=== PATIENT | female | born 1990 | race Hispanic/Latino ===

== ENCOUNTER 2018-06-08 11:04 | Emergency (ER) | payer OTHER, SELFPAY ==
[2018-06-08] MEDS ORDERED: ONDANSETRON 4 MG/2 ML VIAL ONE (12:41)
[2018-06-08] MEDS ORDERED: NA CHLORIDE 0.9% 1,000 ML ONE (12:41)
[2018-06-08] MEDS ORDERED: MORPHINE 4 MG/ML SYR ONE ×2 (12:41→19:59)
[2018-06-08] MEDS ORDERED: FAMOTIDINE 20 MG/2 ML VIAL IV ONE (12:41)
[2018-06-08 12:43] LABS: Absolute Monocytes 0.5 K/uL (0.1-1.3); Absolute Neutrophil 7.2 K/uL (1.8-8.0); Basophils % 0.3 % (0-1.3); Eosinophils % 1.4 % (0-4.4); Hematocrit 36.7 % (36.0-45.0); Lymphocytes % 11.7 % (15.3-44.8); MCH 29.2 pg (27.0-35.0); MCV 85.6 fL (80-100); MPV 9.5 fL (7.6-11.3); Monocytes % 5.3 % (3.3-12.3); RBC Red Blood Cell Count 4.29 M/uL (3.86-4.86)
--- NOTE | 2018-06-08 12:58 | EKG ---
Test Date: 2018-06-08 Test Time: 11:52:46 Bilingual Legal Assistant: ELIAZAR MEASUREMENT RESULTS: Intervals: Rate: 61 FL: 140 QRSD: 78 QT: 398 QTc: 400 Sebastian: P: -7 FL: 140 QRS: 7 T: 26 INTERPRETIVE STATEMENTS: Normal sinus rhythm Possible Anterior infarct, age undetermined Abnormal ECG No previous ECG available for comparison Electronically Signed On 06-08-18 12:57:40 CDT by Yuri Valiente
--- NOTE | 2018-06-08 13:00 | RAD REPORT ---
EXAM DESCRIPTION: US - Abdomen Exam Limited - 06/08/2018 12:51 pm CLINICAL HISTORY: ABD PAIN COMPARISON: No comparisons FINDINGS: The gallbladder demonstrates multiple shadowing gallstones. Edema is present in the wall m easuring 5 mm. The common bile duct is normal measuring 4 mm. The liver demonstrates no findings of intrahepatic biliary dilatation. IMPRESSION: Cholelithiasis with thickening gallbladder wall to 5 mm most compatible with acute hector cystitis.
--- NOTE | 2018-06-08 13:08 | RAD REPORT ---
EXAM DESCRIPTION: RAD - Chest Single View - 06/08/2018 1:03 pm CLINICAL HISTORY: CHEST PAIN Chest pain. COMPARISON: No comparisons FINDINGS: Portable technique limits examination quality. The lungs are grossly clear. The heart is normal in size. No displaced fractures. IMPRESSION: No acute intrathoracic process suspected.
[2018-06-08 13:17] LABS: ALT/SGPT 50 U/L (12-78); AST/SGOT 21 U/L (15-37); Albumin 3.7 g/dL (3.4-5.0); Alkaline Phosphatase 92 U/L (45-117); BUN Blood Urea Nitrogen 8 mg/dL (7-18); Bicarbonate 25 mmol/L (21-32); Bilirubin Direct 0.1 mg/dL (0-0.2); Bilirubin Total 0.5 mg/dL (0.2-1.0); Glucose Level 99 mg/dL (74-106); Lipase 101 U/L (73-393); Magnesium 1.9 mg/dL (1.8-2.4); Potassium 3.6 mmol/L (3.5-5.1); Protein, Total 7.8 g/dL (6.4-8.2); Sodium Level 140 mmol/L (136-145); Troponin (Emerg Dept Use Only) 0.12 ng/mL (0.0-0.045)
--- NOTE | 2018-06-08 13:36 | EDPHYS ---
Physician Documentation [facility] Name: Linda Sy Age: 27 yrs Sex: Female : 1990 Arrival Date: 06/08/2018 Time: 11:07 Bed 27 Private MD: ED Physician Lio Mead HPI: 06/08 12:28 This 27 yrs old Female presents to ER via Ambulatory with complaints of Chest lucia Pain, Low Back Pain. 12:28 The patient or guardian reports chest pain that is located primarily in the substernal lucia area, epigastric area. The pain radiates to right back. Associated signs and symptoms: The patient has no apparent associated signs or symptoms. The chest pain is described as aching, burning. Modifying factors: The symptoms are alleviated by nothing. the symptoms are aggravated by nothing. Severity of pain: At its worst the pain was moderate in the emergency department the pain has resolved. The patient has not experienced similar symptoms in the past. 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 - Social history:: Smoking status: Patient/guardian denies using tobacco. - Ebola Screening: : Patient denies travel to an Ebola-affected area in the 21 days before illness onset. - Family history:: not pertinent. ROS: 12:28 Constitutional: Negative for fever, chills, and weight loss, Eyes: Negative for injury, lucia pain, redness, and discharge, ENT: Negative for injury, pain, and discharge, Neck: Negative for injury, pain, and swelling, Cardiovascular: Negative for chest pain, palpitations, and edema, Respiratory: Negative for shortness of breath, cough, wheezing, and pleuritic chest pain, Back: Negative for injury and pain, : Negative for injury, bleeding, discharge, and swelling, MS/Extremity: Negative for injury and deformity, Skin: Negative for injury, rash, and discoloration, Neuro: Negative for headache, weakness, numbness, tingling, and seizure, Psych: Negative for depression, anxiety, suicide ideation, homicidal ideation, and hallucinations, Allergy/Immunology: Negative for hives, rash, and allergies, Endocrine: Negative for neck swelling, polydipsia, polyuria, polyphagia, and marked weight changes, Hematologic/Lymphatic: Negative for swollen nodes, abnormal bleeding, and unusual bruising. 12:28 Abdomen/GI: Positive for abdominal pain, abdominal cramps, of the epigastric area and right upper quadrant. Exam: 12:28 Constitutional: This is a well developed, well nourished patient who is awake, alert, lucia and in no acute distress. Head/Face: Normocephalic, atraumatic. Eyes: Pupils equal round and reactive to light, extra-ocular motions intact. Lids and lashes normal. Conjunctiva and sclera are non-icteric and not injected. Cornea within normal limits. Periorbital areas with no swelling, redness, or edema. ENT: Nares patent. No nasal discharge, no septal abnormalities noted. Tympanic membranes are normal and external auditory canals are clear. Oropharynx with no redness, swelling, or masses, exudates, or evidence of obstruction, uvula midline. Mucous membranes moist. Neck: Trachea midline, no thyromegaly or masses palpated, and no cervical lymphadenopathy. Supple, full range of motion without nuchal rigidity, or vertebral point tenderness. No Meningismus. Chest/axilla: Normal chest wall appearance and motion. Nontender with no deformity. No lesions are appreciated. Cardiovascular: Regular rate and rhythm with a normal S1 and S2. No gallops, murmurs, or rubs. Normal PMI, no JVD. No pulse deficits. Respiratory: Lungs have equal breath sounds bilaterally, clear to auscultation and percussion. No rales, rhonchi or wheezes noted. No increased work of breathing, no retractions or nasal flaring. Back: No spinal tenderness. No costovertebral tenderness. Full range of motion. Pelvic Exam: Normal external genitalia. Speculum exam with closed cervical os, no discharge or bleeding noted. Bimanual exam with normal adnexa, no adnexal or cervical motion tenderness. Normal uterus. Female : Normal external genitalia. Skin: Warm, dry with normal turgor. Normal color with no rashes, no lesions, and no evidence of cellulitis. MS/ Extremity: Pulses equal, no cyanosis. Neurovascular intact. Full, normal range of motion. Neuro: Awake and alert, GCS 15, oriented to person, place, time, and situation. Cranial nerves II-XII grossly intact. Motor strength 5/5 in all extremities. Sensory grossly intact. Cerebellar exam normal. Normal gait. Psych: Awake, alert, with orientation to person, place and time. Behavior, mood, and affect are within normal limits. 12:28 Abdomen/GI: Inspection: abdomen appears normal, Bowel sounds: normal, Palpation: mild abdominal tenderness, in the epigastric area and right upper quadrant, Liver: is firm, Hernia: not appreciated. 12:29 Musculoskeletal/extremity: DVT Exam: No signs of deep vein thrombosis. no pain, no lucia swelling, no tenderness, negative Homans' sign noted on exam, no appreciated bluish discoloration, no erythema, no increased warmth. Vital Signs: 11:43 BP 128 / 97; Pulse 83; Resp 16; Temp 97.2(TE); Pulse Ox 100% on R/A; Weight 74.84 kg [facility] (R); Height 5 ft. 1 in. (154.94 cm) (R); Pain 10/10; 12:57 BP 118 / 78; Pulse 74; Resp 18; Pulse Ox 100% on R/A; kr2 14:37 BP 122 / 76; Pulse 63; Resp 19; Pulse Ox 100% ; kr2 16:02 BP 107 / 82; Pulse 59; Resp 19; Pulse Ox 100% on R/A; kr2 18:00 BP 110 / 70; Pulse 62; Resp 17; Pulse Ox 100% on R/A; kr2 18:47 BP 112 / 59; Pulse 73; Resp 19; Pulse Ox 100% ; kr2 19:30 BP 103 / 63; Pulse 75; Resp 17; Pulse Ox 100% ; kr2 20:30 BP 108 / 72; Pulse 74; Resp 16; Pulse Ox 99% on R/A; kr2 11:43 Body Mass Index 31.18 (74.84 kg, 154.94 cm) [facility] MDM: 12:05 Patient medically screened. [facility] 12:29 Data reviewed: vital signs, nurses notes, lab test result(s), EKG, radiologic studies, [facility] plain films, ultrasound. 06/08 12:27 Order name: Basic Metabolic Panel; Complete Time: 13:32 [facility] 06/08 12:27 Order name: CBC with Diff; Complete Time: 13:32 lucia 06/08 12:27 Order name: LFT's; Complete Time: 13:32 lucia 06/08 12:27 Order name: Magnesium; Complete Time: 13:32 [facility] 06/08 12:27 Order name: Troponin (emerg Dept Use Only); Complete Time: 13:32 lucia 06/08 12:27 Order name: Lipase; Complete Time: 13:32 lucia 06/08 12:27 Order name: XRAY Chest (1 view); Complete Time: 13:32 [facility] 06/08 12:27 Order name: US Abdomen Limited; Complete Time: 13:32 lucia 06/08 12:55 Order name: Urine Dipstick--Ancillary (enter results); Complete Time: 14:42 bd 06/08 12:55 Order name: Urine --Ancillary (enter results); Complete Time: 14:42 06/08 13:41 Order name: Echo w/ Doppler [facility] 06/08 13:41 Order name: CT Chest For PE Angio [facility] 06/08 16:41 Order name: Ptt, Activated [facility] 06/08 16:41 Order name: Troponin I [facility] 06/08 12:27 Order name: EKG; Complete Time: 12:28 [facility] 06/08 12:27 Order name: Cardiac monitoring; Complete Time: 12:41 [facility] 06/08 14:08 Order name: CONS Physician Consult EDMT 06/08 14:08 Order name: CONS Physician Consult [facility] 06/08 14:32 Order name: CT; Complete Time: 14:42 EDMT 06/08 12:27 Order name: EKG - Nurse/Tech; Complete Time: 12:41 [facility] 06/08 12:27 Order name: IV Saline Lock; Complete Time: 12:41 [facility] 06/08 12:27 Order name: Labs collected and sent; Complete Time: 12:41 [facility] 06/08 12:27 Order name: O2 Per Protocol; Complete Time: 12:41 [facility] 06/08 12:27 Order name: O2 Sat Monitoring; Complete Time: 12:41 [facility] 06/08 12:27 Order name: Urine Dipstick-Ancillary (obtain specimen); Complete Time: 12:39 lucia 06/08 12:27 Order name: Urine Test (obtain specimen); Complete Time: 12:39 [facility] Administered Medications: 12:40 Drug: Zofran 4 mg Route: IVP; Site: right forearm; kr2 12:58 Follow up: Response: No adverse reaction; Nausea is decreased kr2 12:40 Drug: morphine 2 mg Route: IVP; Site: right forearm; kr2 12:58 Follow up: Response: No adverse reaction; Pain is decreased kr2 12:40 Drug: Pepcid 20 mg Route: IVP; Site: right forearm; kr2 12:57 Follow up: Response: No adverse reaction; Pain is decreased; Nausea is decreased kr2 12:50 Drug: NS 0.9% 1000 ml Route: IV; Rate: 1 bolus; Site: right forearm; kr2 14:00 Follow up: Response: No adverse reaction; IV Status: Completed infusion kr2 14:24 Drug: Heparin (ND-Bolus No thrombolytic) - HEParin 60 units/kg {Co-Signature: kr2 ss (Helen Murphy RN).} Route: IVP; Site: right forearm; 15:10 Follow up: Response: No adverse reaction kr2 14:25 Drug: Heparin (ND Drip) 12 units/kg/hr - (HEParin 57892 units, D5W 500 ml) ss {Co-Signature: kr2 (Helen Murphy RN).} Route: IV; Rate: calculated rate; Site: right forearm; 14:34 Drug: Lopressor 25 mg Route: PO; kr2 15:11 Follow up: Response: No adverse reaction kr2 14:35 Drug: Aspirin Chewable Tablet 324 mg Route: PO; kr2 15:10 Follow up: Response: No adverse reaction kr2 15:08 Drug: Zosyn 3.375 grams Route: IVPB; Infused Over: 60 mins; Site: left antecubital; kr2 16:15 Follow up: Response: No adverse reaction; IV Status: Completed infusion kr2 15:09 Drug: morphine 2 mg Route: IVP; Site: left antecubital; kr2 19:56 Drug: morphine 2 mg Route: IVP; Site: left antecubital; kr2 20:21 Follow up: Response: No adverse reaction; Pain is decreased rv Disposition: 06/08/18 16:40 Transfer ordered to [facility]. Diagnosis are Chest pain, unspecified, Cholecystitis - cystic duct stone, Cholelithiasis, Urinary tract infection, site not specified. - Reason for transfer: Higher level of care. - Accepting physician is to [facility], tele, cholecystitis, chest pain, elevated . - Condition is Fair. - Problem is new. - Symptoms have improved. Signatures: Dispatcher [employer] EDMS Dipika Segundo Madison Maddox RN RN aj1 Lio Mead MD MD cha Smirch, Shelby, RN RN ss Helen Murphy RN RN kr2 Javy Zhang RN rv Helen Murphy RN kr2 Corrections: (The following items were deleted from the chart) 13:38 13:35 06/08/2018 13:35 Transfer ordered to [facility]. Diagnosis is lucia Other chest pain; Cholecystitis; Cholelithiasis. Reason for transfer: Higher level of care. Accepting physician is to [facility]. Condition is Stable. Problem is new. Symptoms have improved. lucia 14:01 13:38 06/08/2018 13:35 Transfer ordered to [facility]. Diagnosis is lucia Other chest pain - trop 0.12; Cholecystitis; Cholelithiasis. Reason for transfer: Higher level of care. Accepting physician is to [facility]. Condition is Stable. Problem is new. Symptoms have improved. lucia 15:55 14:02 Hospitalization Ordered by Haylee Hopkins MD for Inpatient Admission. Preliminary bd diagnosis is Other chest pain; Cholecystitis; Cholelithiasis. Bed requested for Telemetry/MedSurg (Inpatient). Status is Inpatient Admission. Condition is Fair. Problem is new. Symptoms have improved. UTI on Admission? No. lucia 16:37 15:55 06/08/2018 14:02 Hospitalization Ordered by Haylee Hopkins MD for Inpatient lucia Admission. Preliminary diagnosis is Other chest pain; Cholecystitis; Cholelithiasis. Bed requested for Telemetry/MedSurg (Inpatient). Status is Inpatient Admission. Condition is Fair. Problem is new. Symptoms have improved. UTI on Admission? No. bd 17:12 16:40 06/08/2018 16:40 Transfer ordered to [facility]. Diagnosis is lucia Chest pain, unspecified; Cholecystitis - cystic duct stone; Cholelithiasis. Reason for transfer: Higher level of care. Accepting physician is to [facility], tele, cholecystitis, chest pain, elevated . Condition is Fair. Problem is new. Symptoms have improved. lucia 20:33 17:12 06/08/2018 16:40 Transfer ordered to [facility]. Diagnosis is kr2 Chest pain, unspecified; Cholecystitis - cystic duct stone; Cholelithiasis; Urinary tract infection, site not specified. Reason for transfer: Higher level of care. Accepting physician is to [facility], tele, cholecystitis, chest pain, elevated . Condition is Fair. Problem is new. Symptoms have improved. lucia
--- NOTE | 2018-06-08 13:36 | ER ---
Nurse's Notes [facility] Name: Linda Sy Age: 27 yrs Sex: Female : 1990 Arrival Date: 06/08/2018 Time: 11:07 Bed 27 Private MD: Diagnosis: Chest pain, unspecified;Cholecystitis-cystic duct stone;Cholelithiasis;Urinary tract infection, site not specified Presentation: 06/08 11:40 Presenting complaint: Patient states: Reports right lower back pain, epigastric pain aj1 and chest pain since last night. Reports SOB, vomiting. Denies palpitations. Denies urinary symptomes. Transition of care: patient was not received from another setting of care. Onset of symptoms was June 07, 2018. Risk Assessment: Do you want to hurt yourself or someone else? Patient reports no desire to harm self or others. Initial Sepsis Screen: Does the patient meet any 2 criteria? No. Patient's initial sepsis screen is negative. Does the patient have a suspected source of infection? Yes: Acute abdominal pain. Care prior to arrival: None. 11:40 Method Of Arrival: Ambulatory aj1 11:40 Acuity: JOSUE 3 aj1 Triage Assessment: 11:43 General: Appears in no apparent distress. uncomfortable, Behavior is calm, cooperative, aj1 appropriate for age. Pain: Complains of pain in right low back, chest and epigastric area Pain currently is 10 out of 10 on a pain scale. Neuro: Level of Consciousness is awake, alert, obeys commands. Cardiovascular: Patient's skin is warm and dry. Cardiovascular: Reports chest pain. Respiratory: Airway is patent Respiratory effort is even, unlabored, Respiratory pattern is regular, symmetrical. GI: Reports upper abdominal pain, vomiting. : Denies burning with urination, urinary frequency. Derm: Skin is pink, warm \T\ dry. normal. 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 - Social history:: Smoking status: Patient/guardian denies using tobacco. - Ebola Screening: : Patient denies travel to an Ebola-affected area in the 21 days before illness onset. - Family history:: not pertinent. Screenin:12 Abuse screen: Denies threats or abuse. Denies injuries from another. Nutritional kr2 screening: No deficits noted. Tuberculosis screening: No symptoms or risk factors identified. Fall Risk None identified. Assessment: 12:09 General: Appears in no apparent distress. comfortable, well groomed, well developed, kr2 well nourished, Behavior is calm, cooperative, appropriate for age. Pain: Complains of pain in epigastric area Pain radiates to back Pain currently is 10 out of 10 on a pain scale. Quality of pain is described as sharp, shooting, Pain began last night Is continuous, Alleviated by nothing. Aggravated by increased activity. Neuro: Level of Consciousness is awake, alert, obeys commands, Oriented to person, place, time, situation, Appropriate for age. Cardiovascular: Capillary refill < 3 seconds in bilateral fingers Patient's skin is warm and dry. Rhythm is sinus rhythm. Respiratory: Airway is patent Respiratory effort is even, unlabored, Respiratory pattern is regular, symmetrical. GI: Abdomen is flat, non-distended, Bowel sounds present X 4 quads. Reports nausea, vomiting. EENT: Oral mucosa is moist. Derm: Skin is intact, is healthy with good turgor, Skin is pink, warm \T\ dry. Musculoskeletal: Circulation, motion, and sensation intact. 12:41 Reassessment: Patient taken to ultrasound via wheelchair by tech at this time. kr2 12:56 Reassessment: Patient appears in no apparent distress at this time. Patient and/or kr2 family updated on plan of care and expected duration. Pain level reassessed. Patient is alert, oriented x 3, equal unlabored respirations, skin warm/dry/pink. States pain has decreased Patient states feeling better. 14:36 Reassessment: Patient appears in no apparent distress at this time. Patient and/or kr2 family updated on plan of care and expected duration. Pain level reassessed. Patient is alert, oriented x 3, equal unlabored respirations, skin warm/dry/pink. Patient states symptoms have improved. 15:30 Reassessment: Patient appears in no apparent distress at this time. Patient and/or kr2 family updated on plan of care and expected duration. Pain level reassessed. Patient is alert, oriented x 3, equal unlabored respirations, skin warm/dry/pink. Patient states feeling better. 17:30 Reassessment: Decreased rate of Heparin drip to 750 units/hr per Heparin protocol based kr2 on PTT of 115. 17:54 Reassessment: Patient appears in no apparent distress at this time. Patient and/or kr2 family updated on plan of care and expected duration. Pain level reassessed. Patient is alert, oriented x 3, equal unlabored respirations, skin warm/dry/pink. Patient states pain has decreased. 18:48 Reassessment: Patient appears in no apparent distress at this time. Patient and/or kr2 family updated on plan of care and expected duration. Pain level reassessed. Patient is alert, oriented x 3, equal unlabored respirations, skin warm/dry/pink. 19:30 Reassessment: Patient appears in no apparent distress at this time. Patient and/or kr2 family updated on plan of care and expected duration. Pain level reassessed. Patient is alert, oriented x 3, equal unlabored respirations, skin warm/dry/pink. Patient states feeling better. 19:45 Reassessment: Report called to receiving nurse BRITANY Mares at [facility]. kr2 20:30 Reassessment: Patient appears in no apparent distress at this time. Patient and/or kr2 family updated on plan of care and expected duration. Pain level reassessed. Patient is alert, oriented x 3, equal unlabored respirations, skin warm/dry/pink. States pain is decreased. Vital Signs: 11:43 BP 128 / 97; Pulse 83; Resp 16; Temp 97.2(TE); Pulse Ox 100% on R/A; Weight 74.84 kg aj1 (R); Height 5 ft. 1 in. (154.94 cm) (R); Pain 10/10; 12:57 BP 118 / 78; Pulse 74; Resp 18; Pulse Ox 100% on R/A; kr2 14:37 BP 122 / 76; Pulse 63; Resp 19; Pulse Ox 100% ; kr2 16:02 BP 107 / 82; Pulse 59; Resp 19; Pulse Ox 100% on R/A; kr2 18:00 BP 110 / 70; Pulse 62; Resp 17; Pulse Ox 100% on R/A; kr2 18:47 BP 112 / 59; Pulse 73; Resp 19; Pulse Ox 100% ; kr2 19:30 BP 103 / 63; Pulse 75; Resp 17; Pulse Ox 100% ; kr2 20:30 BP 108 / 72; Pulse 74; Resp 16; Pulse Ox 99% on R/A; kr2 11:43 Body Mass Index 31.18 (74.84 kg, 154.94 cm) aj1 ED Course: 11:07 Patient arrived in ED. rg4 11:42 Triage completed. aj1 11:43 Arm band placed on Patient placed in waiting room, Patient notified of wait time. aj1 11:57 EKG completed in triage. Results shown to MD. aj1 12:01 Helen Murphy, BRITANY is Primary Nurse. kr2 12:05 Lio Mead MD is Attending Physician. lucia 12:13 Patient has correct armband on for positive identification. Bed in low position. Call kr2 light in reach. Side rails up X 1. environmental monitoring specialist on. Pulse ox on. NIBP on. Door closed. Warm blanket given. Head of bed elevated. 12:14 Patient maintains SpO2 saturation greater than 95% on room air. kr2 12:15 Urine collected: clean catch specimen, clear, brittney colored, Amount Voided: 100mL. jp3 12:30 Inserted saline lock: 22 gauge in right forearm, using aseptic technique. Blood kr2 collected. 12:35 Patient taken to ultrasound. via wheelchair. lc3 12:50 Ultrasound completed. Patient tolerated well. Patient moved back from ultrasound. lc3 12:51 US Abdomen Limited In Process Unspecified. EDMS 13:03 XRAY Chest (1 view) In Process Unspecified. EDMS 13:04 X-ray completed. Portable x-ray completed in exam room. jr1 13:47 Radiology exam delayed due to test not completed at this time. jg6 14:01 Haylee Hopkins MD is Hospitalizing Provider. lucia 14:11 CT completed. Patient tolerated procedure well. Patient moved to CT via wheelchair. jg6 15:00 Inserted saline lock: 22 gauge in left antecubital area, using aseptic technique. kr2 15:10 Echocardiogram with doppler done by cvt tech. tc 20:28 No provider procedures requiring assistance completed. Patient transferred, IV remains kr2 in place. Administered Medications: 12:40 Drug: Zofran 4 mg Route: IVP; Site: right forearm; kr2 12:58 Follow up: Response: No adverse reaction; Nausea is decreased kr2 12:40 Drug: morphine 2 mg Route: IVP; Site: right forearm; kr2 12:58 Follow up: Response: No adverse reaction; Pain is decreased kr2 12:40 Drug: Pepcid 20 mg Route: IVP; Site: right forearm; kr2 12:57 Follow up: Response: No adverse reaction; Pain is decreased; Nausea is decreased kr2 12:50 Drug: NS 0.9% 1000 ml Route: IV; Rate: 1 bolus; Site: right forearm; kr2 14:00 Follow up: Response: No adverse reaction; IV Status: Completed infusion kr2 14:24 Drug: Heparin (ID-Bolus No thrombolytic) - HEParin 60 units/kg {Co-Signature: kr2 ss (Helen Murphy RN).} Route: IVP; Site: right forearm; 15:10 Follow up: Response: No adverse reaction kr2 14:25 Drug: Heparin (ID Drip) 12 units/kg/hr - (HEParin 42379 units, D5W 500 ml) ss {Co-Signature: kr2 (Helen Murphy RN).} Route: IV; Rate: calculated rate; Site: right forearm; 14:34 Drug: Lopressor 25 mg Route: PO; kr2 15:11 Follow up: Response: No adverse reaction kr2 14:35 Drug: Aspirin Chewable Tablet 324 mg Route: PO; kr2 15:10 Follow up: Response: No adverse reaction kr2 15:08 Drug: Zosyn 3.375 grams Route: IVPB; Infused Over: 60 mins; Site: left antecubital; kr2 16:15 Follow up: Response: No adverse reaction; IV Status: Completed infusion kr2 15:09 Drug: morphine 2 mg Route: IVP; Site: left antecubital; kr2 19:56 Drug: morphine 2 mg Route: IVP; Site: left antecubital; kr2 20:21 Follow up: Response: No adverse reaction; Pain is decreased rv Outcome: 13:35 ER care complete, transfer ordered by . lucia 14:02 Decision to Hospitalize by Provider. lucia 16:40 ER care complete, transfer ordered by . lucia 20:29 Transferred by [facility]. to [facility], Transfer form kr2 completed. 20:29 Condition: stable 20:29 Instructed on the need for transfer, Demonstrated understanding of instructions. 20:33 Patient left the ED. kr2 Signatures: Dispatcher [employer] EDMadison Germain, RN RN cyn1 Lio Mead MD MD cha Ringgold, Jennifer jr1 Elsy Dozier, BRITANY RN ss Jaky Fuchs, account auditor EKG [facility] Frausto Rubi rg4 Helen Murphy RN RN kr2 Javy Zhang RN RN Gilberto Lux Jessica j6 Helen Murphy RN kr2
[2018-06-08 13:50] LABS: Urine Blood NEGATIVE (NEG); Urine Glucose NEGATIVE (NEG); Urine Protein NEGATIVE (NEG)
[2018-06-08] MEDS ORDERED: HEPARIN 5000 UNIT/ML 1 ML VIAL ONE (14:14)
[2018-06-08] MEDS ORDERED: HEPARIN/D5W 25,000 UNIT/500 ML BAG IV ONE (14:14)
[2018-06-08] MEDS ORDERED: PIPER/TAZO/NS 3.375gm 3.375 GM/100 ML BAG ONE (14:15)
[2018-06-08] MEDS ORDERED: ASPIRIN 81 MG CHEWABLE TABLET ONE (14:15)
[2018-06-08] MEDS ORDERED: METOPROLOL TAR 25 MG TAB ONE (14:25)
--- NOTE | 2018-06-08 14:31 | RAD REPORT ---
EXAM DESCRIPTION: CT - Chest For Pe Angio - 06/08/2018 2:17 pm CLINICAL HISTORY: Chest pain. CHEST PAIN COMPARISON: Abdomen Exam Limited dated 06/08/2018 TECHNIQUE: CT angiogram of the pulmonary arteries was performed with MIP. All CT scans are performed using dose optimization technique as appropriate and may include automated exposure control or mA/KV adjustment according to patient size. FINDINGS: No evidence of pulmonary thromboembolism. No acute aortic finding demonstrated. The lungs are clear. No significant pericardial or pleural fluid. No concerning bony finding. In the upper abdomen, the gallbladder is noted to be significantly distended with gallbladder wall th ickening. A large stone is noted in the cystic duct. Acute cholecystitis is suspected. IMPRESSION: No evidence of pulmonary thromboembolism. Acute cholecystitis is suspected.
[2018-06-08 20:47] VITALS: TEMP 97.2
[2018-06-08 20:57] VITALS: BP 108/72; O2SAT 99
--- NOTE | 2018-06-08 21:05 | CON ---
Date of Consultation: 06/08/2018 Brief History Of Present Illness: The patient is a 27-year-old female, who states that she has been having chronic back pain for several months, but has developed mid epigastric abdominal pain . She states that she had liposuction not too long ago and ultimately developed epigastric pain in t his area, which has been present off and on since the surgery. However, over the last week, she note d a worsening of symptoms. The pain got significantly worse yesterday evening after eating [place] f ood and the pain was sharp, stabbing, and radiating through to the back. She has had these similar e pisodes before, but never to this level of intensity. She had some nausea. No vomiting. No change in bowel or bladder habits. No fever, chills since being admitted to the hospital. However, her lawrence n has gotten significantly better. She is essentially pain free at this time, although with minimal soreness, but no tenderness anymore. Past Medical History: Significant for obesity. Past Surgical History: She has had only liposuction with fat transfer from the abdominal area to but tocks. Allergies: NO KNOWN DRUG ALLERGIES. Medications: None. Social History: She denies smoking, alcohol, recreational drug use. 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 Family History: Reviewed, noncontributory. Review of Systems: A 10-point review of systems per HPI, otherwise denies. Physical Examination: Vital Signs: At the time of my examination were stable. General: She is awake, alert, oriented. Psychiatric: She is appropriate and conversive. HEENT: She is normocephalic. Her sclerae are anicteric. Mucous is moist. Oropharynx clear. Neck: Supple. No JVD. Chest: Normal expansion excursion. Cardiovascular: Regular rate and rhythm. Pulmonary: Clear to auscultation bilaterally. Abdomen: Soft, nontender, nondistended. No rebound. No guarding. No focal peritonitis. Negative Rose sign. Negative psoas sign. No Darling Moore or Commiskey signs. Extremities: No clubbing, cyanosis, or edema. Skin: Warm and dry. Laboratory Data: She had a laboratory exam, which reveals a white blood cell count of 8.9, hemoglobi n is 12.5, hematocrit 36.7, platelet count 203. Her neutrophils are 81%. She has sodium 140, potass ium 3.6, chloride 107, carbon dioxide 25, BUN 8, creatinine 0.6, glucose is 99, magnesium 1.9, total bilirubin 0.5, direct bilirubin 0.1, AST 21, ALT 15, alkaline phosphatase is 92. Rapid troponin was 0.12. Her lipase is 101. She had a UA, which was essentially negative. The urine test wa s also negative. She had imaging performed which included chest x-ray officially read as no acute in trathoracic process suspected. She had a CTA of the chest and thorax, which showed no evidence of pu lmonary embolus. Acute cholecystitis was suspected. Gallbladder was noted to be significantly diste nded with gallbladder wall thickening. A large stone is noted in the cystic duct. Acute cholecystit is is suspected. She had an ultrasound of the abdomen as well. It showed cholelithiasis with thicke vicente of gallbladder wall to 5 mm, most compatible with acute cholecystitis. Edema is present of the wall measuring 5 mm. The common bile duct is normal measuring 4 mm. There are multiple shadowing ga llstones. Liver demonstrates no findings of intrahepatic biliary ductal dilatation. Assessment And Plan: This is a 27-year-old female, who comes in with signs and symptoms of acute cho lecystitis. 1.IV fluid hydration. 2.Antibiotic coverage. 3.N.p.o. status. 4.Serial abdominal exams. 5.The patient will have cardiac clearance due to her elevation of troponins by Dr. Valiente. Once ca rdiac clearance has been established, I have discussed the risks, benefits, and alternatives of lapar oscopic, possible open cholecystectomy including but not limited to bleeding, infection, damage to luke rrounding tissue, need for further operative procedures, injury to bile ducts, intestines, and additi onal blood clots, heart attacks, and other anesthesia problems relating to surgical intervention. Sh e agrees to proceed as indicated. Thank you for this interesting consult. AMADO Voice ID: [id number] Report ID: [id number]
--- NOTE | 2018-06-09 02:50 | HP ---
Date of Admission: 06/08/2018 Consultants: Dr. Boone, General Surgery; Dr. Valiente, Cardiology. Chief Complaint: Abdominal pain, chest pain. History Of Present Illness: The patient is a 27-year-old female with no significant past medical history other than obesity, who has been having epigastric abdominal pain that is worse with eating over the past month. The patient states that the pain has now become constant, moderate, and progressive , and will grow from sleep last night. The patient also felt some chest pain and some shortness of breath. Chest pain is worse with deep breaths. The patient states that when she was 16, she was diagnosed with some form of cardiomegaly or cardiomyopathy. She is unsure which due to an unknown etiology , may perhaps thought to be viral. The patient is not on any medications. Upon arrival, her vital signs were stable. She was afebrile. Her workup did reveal a normal white blood cell count. Her troponin, however, was elevated at 0.12. Imaging studies including abdominal ultrasound shows cholelithiasis, thickening gallbladder wall to 5 mm. No intrahepatic biliary dilatation. CT angio chest was done to rule out PE that was negative. The patient does have a large stone in the cystic duct with acute cholecystitis suspected. No evidence of PE. The patient was then referred for admission. She was given pain medication, heparinized, and IV fluids were started. The patient did receive IV antibiotics as well. Dr. Valiente with Cardiology and Dr. Boone with General Surgery were consulted by the ER. When seen in the ER, she was awake, alert, oriented x3, in some mild distress. Past Medical History: Obesity, history of viral cardiomyopathy. Past Surgical History: Liposuction. Allergies: NO KNOWN DRUG ALLERGIES. Medications: None. Date of last menstrual period is 05/13/2018. Social History: The patient denies any alcohol use, tobacco use, or illicit drug use. Family History: Denies any premature coronary artery disease. Review of Systems: A 10-point system reviewed, negative except as per HPI. Physical Examination: Vital Signs: Blood pressure 128/97, pulse 83, respirations 16, temperature 97.2 , O2 100% on room air. General: Awake, alert, oriented x3. Some mild distress. Ill-appearing female. HEENT: Normocephalic, atraumatic. PERRLA. EOMI. Dry mucous membranes. Oropharynx is clear. Conjunctiva is anicteric. Neck: Supple. No JVD. Trachea midline CV: S1, S2. Regular rate and rhythm. Peripheral pulses present. Respiratory: Moving air well bilaterally. No wheezing or stridor. No use of accessory muscles. Gastrointestinal: Abdomen is soft. Mild tenderness to palpation in the epigastric region. No rebound or guarding. No hepatosplenomegaly. Extremities: No clubbing, cyanosis, or edema. No calf tenderness. Neuro: Cranial nerves 2-12 intact grossly. No focal neurological deficits. Speech is normal. Strength is 5/5 in bilateral upper and lower extremities. Sensation intact to light touch. Skin: No rashes. Normal skin turgor. Psych: Mood is anxious. Affect is congruent with mood. Insight and judgment are good. Laboratory Data: Sodium 140, potassium 3.6, chloride 107, CO2 25, BUN 8, creatinine 0.6, glucose 99, calcium 8.6, magnesium 1.9, total bilirubin 0.5, AST 21, ALT 50, troponin 0.12, lipase 101. WBC 8.9, H and H 12.5, 36.7, platelets 203, neutrophils 81%. UA is negative. Urine test is also negative. Imaging Studies: CT angio chest shows no evidence of PE, acute cholecystitis suspected. Large stone is noted in the cystic duct. Abdominal ultrasound shows cholelithiasis with thickening gallbladder wall to 5 mm, most compatible with acute cholecystitis. Assessment And Plan: A 27-year-old female with: 1. Epigastric abdominal pain, likely secondary to acute cholecystitis. 2. Acute cholecystitis. The patient does have a large cystic stone. 3. Atypical chest pain, likely pleuritic chest pain. 4. History of viral cardiomyopathy at age of 16. 5. Obesity, BMI 31. 6. Elevated troponin level, unclear etiology, not NSTEMI. Echocardiogram has been ordered. 7. Gastrointestinal and deep venous thrombosis prophylaxis with SCDs and PPI. Plan: Admit the patient to Med-Surg, place as inpatient. Start on IV antibiotics and IV fluids. Keep n.p.o. Cardiology and General Surgery have been consulted. The patient may need GI Services and an ERCP due to cystic duct. We will need to confirm GI availability. We will follow up an echocardiogram prior to surgical clearance. ADDENDUM: patients CTA done after I was called to admit the patient and which did not result till after my evaluation showed a stone in the cystic duct and due to no GI availabilty, patient will be transferred from ER. SAEED Voice ID: [id number] MTDD
--- NOTE | 2018-06-09 08:15 | ECHO ---
HEIGHT: 5 ft 1 in WEIGHT: 165 lb 0 oz DATE OF STUDY: 06/08/[address]: Lio Mead MD 2-DIMENSIONAL: YES M.MODE: YES DOPPLER: YES COLOR FLOW: YES TDS: NO PORTABLE: YES DEFINITY: NO BUBBLE STUDY: NO DIAGNOSIS: CHEST PAIN CARDIAC HISTORY: CATHERIZATION: NO SURGERY: NO PROSTHETIC VALVE: NO PACEMAKER: NO MEASUREMENTS (cm) DIASTOLIC (NORMALS) SYSTOLIC (NORMALS) IVSd 0.8 (0.6-1.2) LA Diam 3.4 (1.9-4.0) LVEF 57% LVIDd 4.5 (3.5-5.7) LVIDs 3.2 (2.0-3.5) %FS 30% LVPWd 1.1 (0.6-1.2) Ao Diam 2.4 (2.0-3.7) 2 DIMENSIONAL ASSESSMENT: RIGHT ATRIUM: NORMAL LEFT ATRIUM: NORMAL RIGHT VENTRICLE: NORMAL LEFT VENTRICLE: NORMAL TRICUSPID VALVE: NORMAL MITRAL VALVE: NORMAL PULMONIC VALVE: NORMAL AORTIC VALVE: NORMAL PERICARDIAL EFFUSION: NONE AORTIC ROOT: NORMAL LEFT VENTRICULAR WALL MOTION: NORMAL DOPPLER/COLOR FLOW: NORMAL COMMENTS: NORMAL 2D ECHOCARDIOGRAM WITH DOPPLER. NO WALL MOTION ABNORMALITY. NO EFFUSION. TECHNOLOGIST: Emiliano DAMON
== END 2018-06-08 20:33 | disposition short-term general hospital (02) ==
LOC: ER 11:04 → UNDOADMIN 14:04 → ERHOLD 14:04 → ER 20:33
DX: K80.10 Calculus of gallbladder with chronic cholecystitis without obstruction (principal); N39.0 Urinary tract infection, site not specified
CPT/HCPCS: 36415; 71045; 71275; 76705; 80048; 80076; 81003; 81025; 83690; 83735; 84484; 85025; 85730; 93005; 93306; 99285; J1644; J2405; J2543; J7030; Q9967